=== PATIENT | female | born 1980 | race Two or more races ===

== ENCOUNTER 2016-12-17 21:06 | Emergency (ER) | payer MEDICARE, OTHER ==
[~2016-12-17 21:06] MED LIST: ALBUTEROL MININEB NEB; ALBUTEROL17 GM INH; ALPRAZOLAM PO; AMOXICILLIN PO; BACTRIM DS TABL1 TA1 PO; BACTRIM DS TABL1 TAB PO; BENADRYL PO; BENADRYL25 MG PO; BENZONATATE PO; BENZONATATE200 M1 PO; BROMFED DM COU118 ML PO; CIPRO PO; CLARITIN10 MG PO; DARVOCET-N 1001 TAB PO; DIAZEPAM PO; DICLOFENAC PO; DICYCLOMINE HCL20 MG PO; DYAZIDE 371 CAP 37.5 PO; DYRENIUM100 MG PO; DYRENIUM50 MG PO; ELIMITE60 GM TOP; FIORICET W/CODE1 CAP PO; FIORINAL CAPSUL1 CAP PO; FLEXERIL PO; FLEXERIL10 MG PO; HALCION PO; IBUPROFEN PO; KEFLEX500 MG PO; LORAZEPAM0.5 MG PO; LORTAB 5/500 TA1 TA1 PO; MOTRIN400 MG PO; NAPROSYN500 MG PO; NAPROXEN PO; NEURONTIN PO; NORVASC PO; PEN-VEE K PO; PERCOCET5/325 PO; PREDNISONE PO; PREDNISONE10 MG PO; PRILOSEC PO; PRILOSEC20 MG PO; PROZAC PO; PROZAC40 MG PO; PYRIDIUM PO; REGLAN PO; ROBITUSSIN AC PO; SYMBICORT80 INH; TRAZODONE PO; TRIAMTERENE-HCT1 TA8 PO; TUSSIONEX PENN473 ML PO; TUSSIONEX PENN480 ML PO; TYLENOL #3 PO; ULTRAM PO; VICODIN 5/1 TAB 5/50 PO; VITAMIN D1000 UNI1 PO; VITAMIN D400 UNI2 PO; XANAX0.5 MG PO; ZITHROMAX PO; ZITHROMAX1 G/PKT PO
[2016-12-17] MEDS ORDERED: ALBUTEROL17 GM INH (21:26)
[2016-12-17] MEDS ORDERED: CLONIDINE PO (21:26)
[2016-12-17] MEDS ORDERED: PROZAC PO (21:26)
[2016-12-17] MEDS ORDERED: SYMBICORT80 INH (21:27)
== END 2016-12-17 22:06 | disposition home or self-care (01) ==
LOC: SED 21:06
DX: S00.83XA Contusion of other part of head, initial encounter (principal); J44.9 Chronic obstructive pulmonary disease, unspecified; I10 Essential (primary) hypertension; F32.9 Major depressive disorder, single episode, unspecified; F41.9 Anxiety disorder, unspecified; F17.210 Nicotine dependence, cigarettes, uncomplicated; Z88.6 Allergy status to analgesic agent; Z79.899 Other long term (current) drug therapy; Y09 Assault by unspecified means
CPT/HCPCS: 99283